=== PATIENT | male | born 1950 | race Caucasian/White ===

== ENCOUNTER 2017-03-16 12:04 | Emergency (ER) | payer BC ==
[2017-03-16 12:26] VITALS: BP 140/90
[2017-03-16] MEDS ORDERED: Tetan/Diph/Pertus SYR(Tdap)* 0.5 ML SYR(BOOSTRIX) use SYR IM ONE (12:57)
--- NOTE | 2017-03-16 13:54 | UC ---
Lower Extremity/Ankle HPI - HPI Summary HPI Summary: RIGHT 3RD TOE (DORSAL ASPECT) ABRASION LASTING SEVERAL WEEKS. WORSENING AND GETTING REDDER OVER LAST FEW DAYS. LAST TETANUS UNKNOWN. NO HISTORY OF DIABETES. SHOES RUB ON ABRASION AND PREVENT IT FROM HEALING. - History of Current Complaint Chief Complaint: UCSkin Stated Complaint: ABRASION ON FOOT Time Seen by Provider: 03/16/17 12:47 Hx Obtained From: Patient Onset/Duration: Gradual Onset, Lasting Weeks Severity Initially: Mild Severity Currently: Mild Pain Intensity: 0 Pain Scale Used: Adult Non Verbal Aggravating Factor(s): Ambulation Alleviating Factor(s): Rest Able to Bear Weight: Yes - Risk Factors Gout Risk Factors: Negative DVT Risk Factors: Negative Septic Arthritis Risk Factor: Negative - Allergies/Home Medications Allergies/Adverse Reactions: Allergies Allergy/AdvReac Type Severity Reaction Status Date / Time No Known Allergies Allergy Verified 03/16/17 12:26 Home Medications: Home Medications Atorvastatin* [Lipitor*] 20 mg PO DAILY 03/16/17 [History Confirmed 03/16/17] FLUoxetine CAP* [PROzac CAP*] 40 mg PO DAILY 03/16/17 [History Confirmed ] PMH/Surg Hx/FS Hx/Imm Hx Previously Healthy: Yes - Surgical History Surgical History: None - Family History Known Family History: Negative: Diabetes - Social History Occupation: Employed Full-time Lives: With Family Alcohol Use: Weekly Alcohol Amount: 2x week Substance Use Type: None Smoking Status (MU): Current Some Day Smoker Amount Used/How Often: once every few months Review of Systems Constitutional: Negative Skin: Rash Eyes: Negative ENT: Negative Respiratory: Negative Cardiovascular: Negative Gastrointestinal: Negative Genitourinary: Negative Motor: Negative Neurovascular: Negative Musculoskeletal: Negative Neurological: Negative Psychological: Negative Is Patient Immunocompromised?: No All Other Systems Reviewed And Are Negative: Yes Physical Exam Triage Information Reviewed: Yes Appearance: Well-Appearing, No Pain Distress, Well-Nourished Vital Signs: Initial Vital Signs Temp 98.1 F 03/16/17 12:22 Pulse 83 03/16/17 12:22 Resp 16 03/16/17 12:22 BP 140/90 03/16/17 12:22 Pulse Ox 99 03/16/17 12:22 Vital Signs Reviewed: Yes Eye Exam: Normal ENT Exam: Normal ENT: Positive: Normal ENT inspection, Hearing grossly normal, Pharynx normal Dental Exam: Normal Neck exam: Normal Neck: Positive: Supple, Nontender, No Lymphadenopathy Respiratory Exam: Normal Respiratory: Positive: Chest non-tender, Lungs clear, Normal breath sounds, No respiratory distress Cardiovascular Exam: Normal Cardiovascular: Positive: RRR, No Murmur, Pulses Normal Abdominal Exam: Normal Musculoskeletal Exam: Normal Musculoskeletal: Positive: Strength Intact, ROM Intact Neurological Exam: Normal Psychological Exam: Normal Skin: Positive: rashes - WEEPING ABRASION 2CM X 1CM DORSAL RIGHT THIRD TOE WITH SURROUNDING ERYTHEMA Lower Extremity Course/Dx - Differential Dx/Diagnosis Differential Diagnosis/HQI/PQRI: Cellulitis Provider Diagnoses: RIGHT THIRD TOE ABRASION, CELLULITIS Discharge - Discharge Plan Condition: Stable Disposition: HOME Prescriptions: Cephalexin CAP* [Keflex CAP*] 500 mg PO TID #30 cap Patient Education Materials: Cellulitis (ED), Abrasion (ED) Referrals: Charles Renteria DPM [Doctor of Podiatric Medicine] - Samuel Kohler DPM [Doctor of Podiatric Medicine] - Be Honeycutt MD [Primary Care Provider] -
== END 2017-03-16 13:40 | disposition home or self-care (01) ==
LOC: UCEAST 12:04
DX: S90.414A Abrasion, right lesser toe(s), initial encounter (principal); L03.031 Cellulitis of right toe; X58.XXXA Exposure to other specified factors, initial encounter; Y92.9 Unspecified place or not applicable; F17.200 Nicotine dependence, unspecified, uncomplicated
CPT/HCPCS: 90471; 90715; 96372; 99213; G0463

== ENCOUNTER 2017-06-28 15:30 | Emergency (ER) | payer BC ==
[2017-06-28 15:42] VITALS: BP 148/94
--- NOTE | 2017-06-28 15:49 | UC ---
Respiratory Complaint HPI - HPI Summary HPI Summary: Pt presents with dry cough for the last 10 days. He tells me that 10 days ago he developed a dry nagging cough that has progressed into productive yellow phlegm over the last 2-3 days. Has not been taking anything OTC. Is having trouble sleeping at night due to cough. Denies fever, chills, sore throat, SOB, chest pain, abdominal pain. - History of Current Complaint Chief Complaint: UCRespiratory Stated Complaint: COUGH Hx Obtained From: Patient Onset/Duration: Gradual Onset Severity Currently: None Pain Intensity: 0 Character: Cough: Productive - Allergies/Home Medications Allergies/Adverse Reactions: Allergies Allergy/AdvReac Type Severity Reaction Status Date / Time No Known Allergies Allergy Verified 06/28/17 15:43 PMH/Surg Hx/FS Hx/Imm Hx Previously Healthy: Yes Endocrine History: Dyslipidemia Psychological History: Anxiety, Depression - Surgical History Surgical History: None - Family History Known Family History: Negative: Diabetes - Social History Occupation: Employed Full-time Lives: With Family Alcohol Use: Weekly Alcohol Amount: 2x week Substance Use Type: None Smoking Status (MU): Former Smoker Amount Used/How Often: once every few months Review of Systems Constitutional: Negative Skin: Negative Eyes: Negative ENT: Negative Respiratory: Cough Cardiovascular: Negative Gastrointestinal: Negative Musculoskeletal: Negative Neurological: Negative Psychological: Negative All Other Systems Reviewed And Are Negative: Yes Physical Exam - Summary Physical Exam Summary: GENERAL: NAD. WDWN. No pain distress. SKIN: No rashes, sores, ulcers, masses, lesions. HEENT: Head: AT/NC Eyes: Conjunctiva clear without inflammation or discharge. Ears: Hearing grossly normal. TMs intact, no bulging, erythema, or edema. Nose: Nasal mucosa pink and moist. NTTP maxillary and frontal sinus. Throat: Posterior oropharynx without exudates, erythema, or tonsillar enlargement. Uvula midline. NECK: Supple. Nontender. No lymphadenopathy. CHEST: Mild wheezing throughout. No r/r. No accessory muscle use. Breathing comfortably and in no distress. CV: RRR. Without m/r/g. Pulses intact. Brisk cap refill. NEURO: Alert. CN II-XII grossly intact. PSYCH: Age appropriate behavior. Triage Information Reviewed: Yes Vital Signs: Initial Vital Signs Temp 97.2 F 06/28/17 15:40 Pulse 90 06/28/17 15:40 Resp 18 06/28/17 15:40 BP 148/94 06/28/17 15:40 Pulse Ox 98 06/28/17 15:40 Diagnostic Evaluation - Laboratory O2 Sat by Pulse Oximetry: 98 Respiratory Course/Dx - Course Course Of Treatment: Suspect bronchitis. Will cover him with zpak, albuterol inhaler, and robitussin at bedtime. - Differential Dx/Diagnosis Provider Diagnoses: Bronchitis Discharge - Discharge Plan Condition: Stable Disposition: HOME Prescriptions: Albuterol HFA INHALER* [Ventolin HFA Inhaler*] 1 - 2 puff INH Q6H PRN #1 mdi PRN Reason: Cough Azithromycin TAB* [Zithromax TAB (Z-DEBBY) 250 mg #6 tabs] 2 tab PO .TODAY, THEN 1 DAILY #1 debby guaiFENesin/CODIEN 100MG-10MG* [Robitussin AC 100Mg-10Mg*] 5 ml PO BEDTIME PRN # 30 ml MDD 5mL PRN Reason: Cough Patient Education Materials: Acute Bronchitis (ED) Referrals: Be Honeycutt MD [Primary Care Provider] - Additional Instructions: If you develop a fever, shortness of breath, chest pain, new or worsening symptoms - please call your PCP or go to the ED. Your blood pressure was high at todays visit. Please see your primary provider within 4 weeks for recheck and re-evaluation.
[2017-06-28] MEDS ORDERED: Albuterol HFA INHALER* 8 gm MDI INH ONE ×2 (15:57)
== END 2017-06-28 16:06 | disposition home or self-care (01) ==
LOC: UCEAST 15:30
DX: J40 Bronchitis, not specified as acute or chronic (principal); Z87.891 Personal history of nicotine dependence
CPT/HCPCS: 99213; A9270-GY; G0463

== ENCOUNTER 2017-08-17 14:59 | Emergency (ER) | payer BC, MEDICARE ==
[2017-08-17 15:26] VITALS: BP 143/82
--- NOTE | 2017-08-17 16:33 | UC ---
Justine Laboy Gabriel, scribed for Bianca Davidson MD on 08/17/17 at 1617 . Skin Complaint HPI - HPI Summary HPI Summary: This patient is a 67 year old M presenting to [facility] accompanied by female family member with a chief complaint of a rash on his right inner ankle that began 6 weeks ago. He has taken Abx for it without significant change. It has been spreading for a couple days. He has tried Neosporin intermittently since it began with no relief. The patient rates the pain 0/10 in severity. Patient reports itching and mild edema of the right ankle, chronically hyperpronates right ankle and foot. Patient denies pain, fever, ankle pain, n/v, and ABD pain. Pt does not have diabetes. - History of Current Complaint Chief Complaint: UCWounds Time Seen by Provider: 08/17/17 16:09 Stated Complaint: SORE ON FOOT Hx Obtained From: Patient Onset/Duration: Lasting Weeks - 6, Still Present Timing: Constant Current Severity: None Pain Intensity: 0 Pain Scale Used: 0-10 Numeric Location: Other - right ankle Associated Signs & Symptoms: Positive: Negative - pain, Rash - itching - Allergy/Home Medications Allergies/Adverse Reactions: Allergies Allergy/AdvReac Type Severity Reaction Status Date / Time No Known Allergies Allergy Verified 08/17/17 15:25 Review of Systems Constitutional: Negative Skin: Rash Eyes: Negative ENT: Negative Respiratory: Negative Cardiovascular: Negative Gastrointestinal: Negative Genitourinary: Negative Motor: Negative Neurovascular: Negative Musculoskeletal: Negative - right ankle swells off an on, without pain. He does use an orthotic for hyperpronation of the foot. Neurological: Negative Psychological: Negative All Other Systems Reviewed And Are Negative: Yes PMH/Surg Hx/FS Hx/Imm Hx Cardiovascular History: Other Other Cardiovascular History: HLD Psychological History: Anxiety, Depression - Surgical History Surgical History: None - Family History Known Family History: Negative: Diabetes - Social History Occupation: Employed Full-time - with hard of hearing Lives: With Family Alcohol Use: Daily Alcohol Amount: 2x week Substance Use Type: None Smoking Status (MU): Current Some Day Smoker Type: Cigarettes Amount Used/How Often: once every few months Physical Exam Triage Information Reviewed: Yes Appearance: Well-Appearing, Obese Vital Signs: Initial Vital Signs Temp 98.9 F 08/17/17 15:21 Pulse 88 08/17/17 15:21 Resp 18 08/17/17 15:21 BP 143/82 08/17/17 15:21 Pulse Ox 99 08/17/17 15:21 Respiratory: Positive: Chest non-tender, Lungs clear, Normal breath sounds Cardiovascular: Positive: RRR, No Murmur Musculoskeletal: Positive: Edema @ - right ankle, both medial and lateral, with pitting around the lateral aspect. Neurological: Positive: Alert Psychological: Positive: Other: - mildly anxious Skin Exam: Other - right medial malleolus with 8 x 6 cm area of erythema. inferiorly, there is scale and induration over a 3 cm area. No tenderness, no warmth, no lymphangina. Course/Dx - Course Course Of Treatment: BP noted and advised to follow up with PCP. steroid cream to contact dermatitis. - Differential Diagnoses - Skin Complaint Differential Diagnoses: Cellulitis, Eczema, Poison Lilia - Diagnoses Provider Diagnoses: Elevated blood pressure without a previous diagnoses of hypertension. contact dermatitis right medial ankle, possibly to neosporin. Discharge - Sign-Out/Discharge Documenting (check all that apply): Discharge/Admit/Transfer - Discharge Plan Condition: Stable Disposition: HOME Prescriptions: Clobetasol Propionate/Emoll [Clobetasol Emollient 0.05% Crm] 15 gm TP BID #30 cream..g. Referrals: Be Honeycutt MD [Primary Care Provider] - Additional Instructions: Your blood pressure was elevated during today's visit, 143/82. Please follow up with your primary care provider in 1-2 weeks. The rash on the ankle is consistent with contact dermatitis, possibly related to the use of neosporin. Discontinue use of neosporin, and apply a thin later of clobetasal to the rash twice daily. This cream is too potent to use on the face, and do NOT use longer than a 3 week period. If you are not seeing a response, please follow up with yor primary doctor. - Billing Disposition and Condition Condition: STABLE Disposition: HOME The documentation as recorded by the Justine cespedes Gabriel accurately reflects the service I personally performed and the decisions made by me, Bianca Davidson MD.
== END 2017-08-17 16:45 | disposition home or self-care (01) ==
LOC: UCEAST 14:59
DX: L25.9 Unspecified contact dermatitis, unspecified cause (principal); R03.0 Elevated blood-pressure reading, without diagnosis of hypertension; E78.5 Hyperlipidemia, unspecified; F41.9 Anxiety disorder, unspecified; F32.9 Major depressive disorder, single episode, unspecified; Z72.0 Tobacco use
CPT/HCPCS: 99212; G0463

== ENCOUNTER 2019-02-26 12:26 | Emergency (ER) | payer MEDICARE ==
[2019-02-26 12:58] VITALS: BP 134/84
--- NOTE | 2019-02-26 13:03 | UC ---
Back Pain HPI - HPI Summary HPI Summary: ONSET YESTERDAY OF LEFT LOW BACK PAIN AND SPASM. 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 DENIES ANY TRAUMA. NO NUMBNESS/TINGLING IN HIS FEET/LEGS. NO SADDLE ANESTHESIA. NO LOSS OF BOWEL OR BLADDER CONTROL. TOOK 2 ALEVE THIS MORNING AND STATES PAIN FEELS A BIT BETTER NOW. - History of Current Complaint Chief Complaint: UCBackPain Stated Complaint: BACK PAIN Time Seen by Provider: 02/26/19 12:46 Hx Obtained From: Patient Onset/Duration: Gradual Onset, Lasting Days, Still Present Timing: Constant Severity Initially: Moderate Severity Currently: Moderate Pain Intensity: 8 Pain Scale Used: 0-10 Numeric Back Pain: Is Discrete @ - LEFT LOW BACK Character: Sharp, Spasmodic Aggravating Factor(s): Movement, Bending Alleviating Factor(s): Rest, OTC Meds Associated Signs And Symptoms: Negative: Swelling, Bruising, Weakness, Numbness , Tingling, Abdominal Pain, Bladder Incontinence, Bowel Incontinence - Allergies/Home Medications Allergies/Adverse Reactions: Allergies Allergy/AdvReac Type Severity Reaction Status Date / Time No Known Allergies Allergy Verified 02/26/19 12:58 Home Medications: Home Medications Clobetasol Propionate/Emoll [Clobetasol Emollient 0.05% Crm] 15 gm TP BID PRN [History Confirmed 02/26/19] PMH/Surg Hx/FS Hx/Imm Hx Cardiovascular History: Hypertension Psychological History: Depression - Surgical History Surgical History: None - Family History Known Family History: Negative: Diabetes - Social History Alcohol Use: Daily Alcohol Amount: 2x week Substance Use Type: None Smoking Status (MU): Current Some Day Smoker Type: Cigarettes Amount Used/How Often: once every few months Review of Systems All Other Systems Reviewed And Are Negative: Yes Constitutional: Positive: Negative Skin: Positive: Negative Respiratory: Positive: Negative Cardiovascular: Positive: Negative Gastrointestinal: Positive: Negative Musculoskeletal: Positive: Arthralgia, Decreased ROM, Myalgia Physical Exam Triage Information Reviewed: Yes Appearance: Well-Appearing, No Pain Distress, Well-Nourished Vital Signs: Initial Vital Signs Temp 98.1 F 02/26/19 12:52 Pulse 82 02/26/19 12:52 Resp 16 02/26/19 12:52 BP 134/84 02/26/19 12:52 Pulse Ox 99 02/26/19 12:52 Vital Signs Reviewed: Yes Eyes: Positive: Conjunctiva Clear ENT: Positive: Hearing grossly normal Neck: Positive: Supple Respiratory: Positive: No respiratory distress, No accessory muscle use Cardiovascular: Positive: Pulses Normal Abdomen Description: Positive: Soft Musculoskeletal: Positive: No Edema, ROM Limited @ - BACK, Other: - NEG STRAIGHT LEG RAISE Neurological: Positive: Alert Psychological: Positive: Age Appropriate Behavior Skin: Negative: Rashes Diagnostics - Radiology LUMBARSACRAL SPINE XRAYS Summary of Radiographic Findings: STUDY NAME ENTERED HERE IN ERROR. NOT ORDERED OR PERFORMED LUMBAR SPINE XRAYS Summary of Radiographic Findings: DEGENERATIVE DISEASE AND OSTEOARTHRITIS. Back Pain Course/Dx - Course Course Of Treatment: X-RAY SHOWS DEGENERATIVE DISEASE AND OSTEOARTHRITIS. PATIENT REPORTS HE HAS PRESCRIPTION STRENGTH NAPROXEN AT HOME. ENCOURAGED HIM TO TAKE THIS TWICE DAILY SCHEDULED FOR THE NEXT FEW DAYS TO HELP WITH THE INFLAMMATION AND DISCOMFORT. MUSCLE RELAXER PROVIDED WELL. ENCOURAGED REST, HEAT, MASSAGE. DISCUSSED PROPER TECHNIQUE FOR LIFTING TO HELP OFFLOAD THE STRESS FROM HIS BACK. PHYSICAL THERAPY REFERRAL PROVIDED FOR PATIENT TO USE IF NEEDED. NO URGENT NEED FOR NEUROSURGICAL EVALUATION HOWEVER IF HIS SYMPTOMS ARE TO WORSEN HE MAY CONSIDER SCHEDULING AN APPOINTMENT FOR FOLLOW-UP. - Differential Dx/Diagnosis Provider Diagnosis: Acute low back pain Discharge ED - Sign-Out/Discharge Documenting (check all that apply): Patient Departure All imaging exams completed and their final reports reviewed: Yes - Discharge Plan Condition: Stable Disposition: HOME Prescriptions: Cyclobenzaprine TAB* [Flexeril TAB*] 10 mg PO BID PRN #30 tab PRN Reason: Pain Patient Education Materials: Lower Back Exercises (ED) Referrals: Caterina Panchal MD [Primary Care Provider] - If Needed Juan Antonio Sy MD [Medical Doctor] - If Needed Additional Instructions: XRAY TODAY NEGATIVE FOR FRACTURE OR DISLOCATION BUT SHOWS DEGENERATIVE DISEASE AND OSTEOARTHRITIS. REST, HEAT, MASSAGE. TAKE 500MG NAPROXEN TWICE DAILY. TAKE MUSCLE RELAXER BEFORE BED. PHYSICAL THERAPY REFERRAL ALSO PROVIDED FOR YOU TO USE IF DESIRED. BE SURE TO GO THROUGH SLOW RANGE OF MOTION AND STRETCHING EXERCISES DAILY YOU ARE ABLE TO PREVENT STIFFENING UP AND MAKING THE DISCOMFORT WORSE. GO TO THE ED WITHOUT FAIL IF YOU DEVELOP NUMBNESS/TINGLING IN YOUR LEGS, NUMBNESS IN THE GENITAL REGION, LOSS OF BOWEL/BLADDER CONTROL, INTOLERABLE PAIN OR ANY OTHER CONCERNING SYMPTOMS. IF YOUR SYMPTOMS WORSEN OR DO NOT IMPROVE YOU MAY BENEFIT FROM NEUROSURGERY EVALUATION OR THE SPINE CENTER. [facility] [address], [place] [address] [facility] [address] [place] [address] - Billing Disposition and Condition Condition: STABLE Disposition: Home
== END 2019-02-26 14:27 | disposition home or self-care (01) ==
LOC: UCEAST 12:26
DX: M54.5 Low back pain (principal); M51.36 Other intervertebral disc degeneration, lumbar region; M47.896 Other spondylosis, lumbar region; F17.210 Nicotine dependence, cigarettes, uncomplicated; I10 Essential (primary) hypertension
CPT/HCPCS: 72100; 99212; G0463